=== PATIENT | female | born 1970 | race Two or more races ===

== ENCOUNTER 2024-11-06 19:28 | Emergency (ER) | payer OTHER ==
[~2024-11-06] VITALS: Ht 157.5 cm; Wt 97.1 kg
[2024-11-06] MEDS ORDERED: KETOROLAC TROMETHAMINE 60 MG VIAL IM ONE ×2 (20:15→20:20)
[2024-11-06] MEDS ORDERED: CLONIDINE HCL 0.1 MG TABLET PO ONE ×2 (20:15→20:20)
== END 2024-11-06 22:15 ==
LOC: ER 19:29
DX: S92.302A Fracture of unspecified metatarsal bone(s), left foot, initial encounter for closed fracture (principal); X58.XXXA Exposure to other specified factors, initial encounter; Y93.89 Activity, other specified; Y92.89 Other specified places as the place of occurrence of the external cause; Y99.8 Other external cause status; Z20.822 Contact with and (suspected) exposure to COVID-19; I10 Essential (primary) hypertension
CPT/HCPCS: 29505; 36415; 73610; 73630; 93005; 96372; 99283; J1885